=== PATIENT | male | born 1995 | race Hispanic/Latino ===

== ENCOUNTER 2021-12-04 13:48 | Emergency (ER) | payer SELFPAY ==
[2021-12-04] MEDS ORDERED: Lidocaine 1%/Epinephrine 1:100K 10 ML VIAL ONE (14:05)
[2021-12-04] MEDS ORDERED: Boostrix 0.5 ML (Tdap) VIAL (>/=7 yrs of age) ONE (15:23)
[2021-12-04] MEDS ORDERED: Bacitracin 1 PK ONE (15:43)
== END 2021-12-04 15:50 | disposition home or self-care (01) ==
LOC: MADERS 13:48
DX: S51.811A Laceration without foreign body of right forearm, initial encounter (principal); W26.8XXA Contact with other sharp object(s), not elsewhere classified, initial encounter; Z23 Encounter for immunization
CPT/HCPCS: 12002; 90471; 90715